=== PATIENT | male | born 1995 | race Caucasian/White ===

== ENCOUNTER 2023-05-20 13:22 | Emergency (ER) | payer OTHER ==
[~2023-05-20] VITALS: Ht 175.3 cm; Wt 84.4 kg
[2023-05-20 13:47] VITALS: O2SAT 98
[2023-05-20] MEDS: ACETAMINOPHEN 325MG TABLET PO ONE (15:45)
[2023-05-20] MEDS ORDERED: ACET-2708 MT (16:31)
[2023-05-20 16:45] VITALS: BP 111/72; PULSE 84; RESP 16; TEMP 98.2
== END 2023-05-20 17:08 | disposition home or self-care (01) ==
LOC: ER 13:22
DX: S09.90XA Unspecified injury of head, initial encounter (principal); V98.8XXA Other specified transport accidents, initial encounter; Y93.89 Activity, other specified; Y92.89 Other specified places as the place of occurrence of the external cause; Y99.8 Other external cause status
CPT/HCPCS: 99284